=== PATIENT | male | born 1975 | race Caucasian/White ===

== ENCOUNTER → 2016-11-07 | Day surgery (SDC) | payer OTHER ==
[~2016-11-07] VITALS: Ht 179.1 cm; Wt 79.4 kg
[~2016-11-07] MED LIST: LORTAB 7.5-3251 EACH PO; PAXIL40 MG PO; PERCOCET 7.5-31 EACH PO; SEROQUEL XR150 MG PO; VISTARIL25 MG PO
[2016-11-07 07:04] LABS: HEMOGLOBIN 13.7 gm/dl (14.0-17.5); RED BLOOD COUNT 4.35 M/UL (4.20-5.50); WHITE BLOOD COUNT 15.5 K/UL (4.5-11.0)
[2016-11-07 07:16] LABS: BUN/CREATININE RATIO 8 (0-10)
== END | disposition home or self-care (01) ==
LOC: OR 05:36
PROVIDERS: Orthopaedic Surgery
PROC: 0QSH04Z Reposition Left Tibia with Internal Fixation Device, Open Approach (ICD-10-PCS; principal; 2016-11-07 09:45)
DX: S82.842A Displaced bimalleolar fracture of left lower leg, initial encounter for closed fracture (principal); F41.9 Anxiety disorder, unspecified; Z79.891 Long term (current) use of opiate analgesic; F17.210 Nicotine dependence, cigarettes, uncomplicated; Z79.899 Other long term (current) drug therapy; X58.XXXA Exposure to other specified factors, initial encounter; Y93.02 Activity, running
CPT/HCPCS: 36415; 73610; 76000; 80048; 85027; C1713; J0690; J1100; J2270; J2405; J3010; J7120